=== PATIENT | female | born 1955 | race Caucasian/White ===

== ENCOUNTER 2024-03-24 06:20 | Day surgery (SDC) | payer MEDICARE, SELFPAY ==
[2024-03-24 08:12] VITALS: BMI 22.2
[2024-03-24 08:13] VITALS: BMI 22.2
[2024-03-24 08:14] VITALS: BP 118/75
[2024-03-24 08:34] LABS: Glucose - Point of Care 120 mg/dl (70-99)
[2024-03-24 09:32] VITALS: BP 109/80
[2024-03-24 09:45] VITALS: BP 137/87
[2024-03-24 09:54] VITALS: BP 128/89
== END 2024-03-24 10:05 | disposition home or self-care (01) ==
LOC: SDS 06:20
PROVIDERS: ATTENDING PHYSICIAN Internal Medicine Gastroenterology; FAMILY PHYSICIAN Family Medicine
DX: D12.2 Benign neoplasm of ascending colon (principal); K57.30 Diverticulosis of large intestine without perforation or abscess without bleeding; K64.8 Other hemorrhoids; R19.5 Other fecal abnormalities; Z79.01 Long term (current) use of anticoagulants
CPT/HCPCS: 45380; 88305; 82962